=== PATIENT | male | born 2000 | race Two or more races ===

== ENCOUNTER 2024-10-16 19:55 | Emergency (ER) | payer MEDICAID, SELFPAY ==
[2024-10-16 19:56] VITALS: BMI 31.6
--- NOTE | 2024-10-16 19:58 | EKG_ITS ---
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
[2024-10-16 20:04] VITALS: BP 147/82; PULSE 110; RESP 20; TEMP 37; O2SAT 95
--- NOTE | 2024-10-16 20:26 | XR_ITS ---
Examination: PA lateral chest 2 views Technique: Upright PA lateral chest 2 views Exam date and time: October 16, 2024 8:00 PM Comparison 02/20/2024 Indications: Chest pain today. Findings: Normal heart size. Lungs are clear. The osseous structures are intact Impression: No active disease
--- NOTE | 2024-10-16 20:26 | EDNOTE_ITS ---
ED Chest Pain RME/HPI General Chief Complaint: Chest Pain Stated Complaint: CHEST PAIN X 2DAYS Time Seen by Provider: 10/16/24 20:05 Arrival date/time: 10/16/24 19:55 23 year old male present to emergency room with c/o of chest pain for 2 days. patient report recently family had pass away and going through alot lately. denies any SI , hallucination or homicidal thoughts LOCATION: Chest SEVERITY: Symptoms are described as being severe with limitations on activities of daily living CONTEXT: The patient is unable to identify any inciting events. DURATION/TIMING: The symptoms started approximately 2 days ASSOCIATED SYMPTOMS: The patient is unable to identify any other associated symptoms. MODIFYING FACTORS: The patient is unable to identify any alleviating or aggravating symptoms. PERTINENT ROS: no fevers, no cough, no pleuritic pain, no ripping or tearing sensations, denies any lower extremity edema and no unilateral swelling, no nausea,vomiting, diarrhea, no dizziness/headache no rash no loc/syncope episode REVIEW OF SYSTEMS: See History of Present Illness - with the exception of those mentioned in the history of present illness, all other systems reviewed and reported as negative GENERAL: In general the patient is awake, interactive, in an emergency department gurney. HEAD/EYES/EARS/NOSE/THROAT: normo-cephalic, atraumatic, mucus membranes are moist, anicteric, palpebral conjunctiva is pink, trachea is midline. CARDIOVASCULAR: regular rate and regular rhythm, no murmurs, heart sounds are not distant, strong pulses in all four extremities that are equal and symmetric bilateral upper and lower extremities, normal capillary refill. CHEST/PULMONARY: normal chest rise and fall, good air movement, clear to auscultation bilaterally, normal inspiratory to expiratory ratios without evidence of respiratory distress. NECK: No midline/Paraspinal tenderness, no step off ROM/Strenght intact No Kernig and bruzinski sign. No trauma ABDOMEN: soft, not tender, no masses appreciated BACK: normal range of motion without pain. NEUROLOGICAL: cranio-facial features are symmetric, moves all four extremities equally without obvious limitations or weakness. EXTREMITY: no tenderness to palpation over the long bones or large joints of the bilateral upper and lower extremities, no joint swelling, no joint erythema, no signs of trauma, no unilateral leg swelling and no peripheral edema. SKIN: warm, dry, well-perfused, no jaundice, no rash, no telangiectasias or petechia. PSYCH: calm, cooperative, no evidence of psychosis or agitation Related Data Previous Rx's ?Medication ?Instructions ?Recorded ibuprofen 600 mg tablet 600 mg PO Q6H #30 tabs 02/26 ibuprofen 600 mg tablet 600 mg PO Q6H #30 tabs 02/26 ibuprofen 800 mg tablet 800 mg PO TID PRN pain #30 t abs 11/20/23 Allergies Allergy/AdvReac Type Severity Reaction Status Date / Time No Known Allergies Allergy Verified 11/20/23 14:10 Course Quality Measures none Orders Category Date Time Status EKG (ED ONLY) *Do not use* NOW Care 10/16/24 19:58 Completed EKG (ED Only) Stat Exams 10/16/24 19:58 Draft XR chest 2V Stat Exams 10/16/24 20:26 Completed CBC Stat Lab 10/16/24 20:25 Ordered CMP [Comprehensive Metabolic Panel] Stat Lab 10/16/24 20:25 Ordered Lipase Stat Lab 10/16/24 20:25 Ordered Mag [Magnesium] Stat Lab 10/16/24 20:25 Ordered TSH [Thyroid Stimulating Hormone] Stat Lab 10/16/24 20:25 Ordered Troponin I Stat Lab 10/16/24 20:25 Ordered LORazepam [Ativan] Med 10/16/24 20:25 Discontinued 1 mg PO X1 ONE Vital Signs Vital signs: Vital Signs Temperature 98.6 F 10/16/24 20:04 Pulse Rate 110 H 10/16/24 20:04 Respiratory Rate 20 10/16/24 20:04 Blood Pressure 147/82 H 10/16/24 20:04 Pulse Oximetry (%) 95 10/16/24 20:04 Oxygen Delivery Method Room Air 10/16/24 20:04 Procedures -ED EKG Interpretation #1: Date of EK10/16/24 Rate: 100 Interpretation: Reviewed by me EKG Impression: No acute ST-T changes, No ectopy, No ischemic changes and Sinus tachycardia Chest Pain Patient data External records reviewed:: [facility] previous records Clinical information provided by:: patient Social determinants that could affect healthcare access:: none Patient has the following chronic illnesses:: n/a How is presenting disease/condition affected by chronic disease/condition?: no chronic disease Evaluation data The following diagnostics were reviewed and interpreted by me:: lab results, radiology exam(s) and EKG tracing(s) Lab and/or radiology exams considered but not ordered:: n/a Interpretation Summary: n/a Medications / Prescriptions Medications or Prescriptions considered but not ordered:: n/a Medication administrations:: Medication Administration History Discontinued Medications Lorazepam (Lorazepam 0.5 Mg Tablet) 1 mg PO X1 ONE Stop: 10/16/24 20:26 Last Admin: 10/16/24 21:21 Dose: 1 mg Documented By: KF as stated Consultations Consultation(s) initiated? (list below): No Diagnosis Most likely diagnosis given after review of the tests above:: chest pain Admission Indicated Admission indicated?: not indicated Admission Request Was there a request for admission?: No Disposition Plan Disposition Plan: other (specify) (eloped ) Discharge Plan Plan Patient Disposition: Elopement Prescriptions/Referrals Prescriptions/Med Rec: No Action ibuprofen 600 mg tablet 600 mg PO Q6H Qty: 30 0RF ibuprofen 600 mg tablet 600 mg PO Q6H Qty: 30 0RF ibuprofen 800 mg tablet 800 mg PO TID PRN (Reason: pain) Qty: 30 0RF Referrals: No Primary/Family,Physician [Primary Care Provider] - In 1 week Problem List Clinical Impression: Chest pain Patient/Caregiver Discharge Instructions Education Materials: ED Chest Pain, Uncertain Cause Print Language: Icelandic
[2024-10-16] MEDS: LORazepam 0.5 MG TABLET 1 MG PO (21:21)
--- NOTE | 2024-10-16 21:23 | PC.NURSE ---
patient eloped at 2124. provider aware and spoke to patient prior to departure. risks and benefits explained. Encouraged to return as needed.
[2024-10-16 21:42] LABS: Basophils # (Auto) 0.1 Thou/mm3 (0.0-0.2); Basophils % (Auto) 1 % (0-2.5); Eosinophils # (Auto) 0.1 Thou/mm3 (0.0-0.5); Eosinophils % (Auto) 1 % (0-10); Hematocrit 50.4 % (41.0-53.0); Hemoglobin 18.1 g/dL (13.5-16.0); Immature Granulocytes % (Auto) 0 % (0-0); Immature Granulocytes Auto 0.04 Thou/mm3 (0.00-0.00); Lymphocytes # (Auto) 2.4 Thou/mm3 (1.0-4.8); Lymphocytes % (Auto) 24 % (10-50); Mean Corpuscular HGB Conc 35.9 g/dl (31.0-37.0); Mean Corpuscular Volume 84 fL (80-100); Monocytes # (Auto) 0.5 Thou/mm3 (0.0-0.8); Monocytes % (Auto) 5 % (0-12); Neutrophils % (Auto) 69 % (37-80); Nucleated Red Blood Cell % 0 /100 WBC (0); Platelet Count 296 Thou/mm3 (140-440); RDW Standard Deviation 38.2 fL (35.1-43.9); Red Blood Count 6.03 Miln/mm3 (4.50-5.90); White Blood Count 10.1 Thou/mm3 (3.8-10.6)
[2024-10-16 22:05] LABS: Anion Gap 12 (7-16); Blood Urea Nitrogen 16 mg/dL (9-23); Carbon Dioxide 23.6 mMol/L (20.0-31.0); Chloride 109 mMol/L (98-107); Creatinine (Component) 0.9 mg/dL (0.6-1.3); Potassium 3.9 mMol/L (3.4-5.1); Sodium 145 mMol/L (136-145)
[2024-10-16 22:06] LABS: Alanine Aminotransferase 80 U/L (10-49); Albumin, Serum 4.8 gm/dL (3.5-5.0); Albumin/Globulin Ratio 1.8 (1.2-2.2); Alkaline Phosphatase 104 U/L (46-116); Aspartate Amino Transferase 33 U/L (0-34); BUN/Creatinine Ratio 18 Ratio (12-20); Bilirubin,Total 0.3 mg/dL (0.3-1.2); Calcium 9.8 mg/dL (8.3-10.6); Calcium (Corrected) 9.8 mg/dL (8.5-10.1); Estimated Creatinine Clearance 133.3 mL/min (>60); Globulin 2.6 gm/dL (2.3-3.5); Glucose 79 mg/dL (74-106); Lipase 31 U/L (12-53); Magnesium 2.1 mg/dL (1.6-2.6); Osmolality,Calculated 288 (275-295); Thyroid Stimulating Hormone 1.95 uIU/mL (0.55-4.78); Total Protein 7.4 gm/dL (5.7-8.2); Troponin I < 0.002 ng/mL (0.0-0.045); eGFR > 60 See Note
== END 2024-10-16 21:24 | disposition left against medical advice (07) ==
PROVIDERS: Physician Assistant; Emergency Provider Emergency Medicine
DX: R07.9 Chest pain, unspecified (principal)
CPT/HCPCS: 36415; 71046; 80053; 83690; 83735; 84443; 84484; 85025; 93005; 99281; A9270

== ENCOUNTER 2024-11-09 17:28 | Emergency (ER) | payer MEDICAID, SELFPAY ==
[2024-11-09 18:08] VITALS: BP 144/95; PULSE 94; RESP 18; TEMP 36.6; O2SAT 100
--- NOTE | 2024-11-09 18:18 | EKG_ITS ---
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
--- NOTE | 2024-11-09 18:21 | XR_ITS ---
Examination: PA lateral chest 2 views TECHNIQUE: Upright PA and lateral chest 2 views Exam date and time: November 09, 2024 1834 hours Comparison October 16, 2024 INDICATIONS: Confusion panic attack today. FINDINGS: Normal heart size. Lungs are clear. Osseous structures are intact. IMPRESSION: No active disease
[2024-11-09 18:54] LABS: Basophils # (Auto) 0.1 Thou/mm3 (0.0-0.2); Basophils % (Auto) 1 % (0-2.5); Eosinophils % (Auto) 0 % (0-10); Hematocrit 48.6 % (41.0-53.0); Hemoglobin 18.2 g/dL (13.5-16.0); Immature Granulocytes % (Auto) 0 % (0-0); Immature Granulocytes Auto 0.04 Thou/mm3 (0.00-0.00); Lymphocytes # (Auto) 2.2 Thou/mm3 (1.0-4.8); Lymphocytes % (Auto) 24 % (10-50); Mean Corpuscular HGB Conc 37.4 g/dl (31.0-37.0); Mean Corpuscular Hemoglobin 30.2 pg (25.0-35.0); Mean Corpuscular Volume 81 fL (80-100); Monocytes # (Auto) 0.6 Thou/mm3 (0.0-0.8); Monocytes % (Auto) 6 % (0-12); Neutrophils # (Auto) 6.4 Thou/mm3 (1.8-7.7); Neutrophils % (Auto) 69 % (37-80); Nucleated Red Blood Cell % 0 /100 WBC (0); Platelet Count 290 Thou/mm3 (140-440); RDW Standard Deviation 36.1 fL (35.1-43.9); Red Blood Count 6.03 Miln/mm3 (4.50-5.90); White Blood Count 9.3 Thou/mm3 (3.8-10.6)
[2024-11-09 19:06] LABS: B-Type Natriuretic Peptide < 20 pg/mL (0-100)
[2024-11-09 19:14] LABS: D-Dimer < 250 ng/mL (<600)
[2024-11-09 19:21] LABS: Alanine Aminotransferase 66 U/L (10-49); Albumin, Serum 4.9 gm/dL (3.5-5.0); Albumin/Globulin Ratio 1.8 (1.2-2.2); Alcohol, Blood Medical < 10.0 mg/dL (0-10.0); Alkaline Phosphatase 104 U/L (46-116); Anion Gap 11 (7-16); Aspartate Amino Transferase 27 U/L (0-34); BUN/Creatinine Ratio 10 Ratio (12-20); Bilirubin,Total 1.1 mg/dL (0.3-1.2); Blood Urea Nitrogen 8 mg/dL (9-23); Calcium 9.3 mg/dL (8.3-10.6); Calcium (Corrected) 9.3 mg/dL (8.5-10.1); Carbon Dioxide 21.6 mMol/L (20.0-31.0); Chloride 107 mMol/L (98-107); Creatinine (Component) 0.8 mg/dL (0.6-1.3); Globulin 2.7 gm/dL (2.3-3.5); Glucose 95 mg/dL (74-106); Osmolality,Calculated 277 (275-295); Potassium 3.3 mMol/L (3.4-5.1); Sodium 140 mMol/L (136-145); Total Protein 7.6 gm/dL (5.7-8.2); eGFR > 60 See Note
[2024-11-09 19:25] LABS: Amphetamine/Methamp Scrn,U Negative (Negative); Barbiturate Screen,Urine Negative (Negative); Benzodiazepines Screen,Urine Negative (Negative); Benzoylecgonine Screen, Ur Positive (Negative); Fentanyl Screen,Urine Negative (Negative); Opiate Screen,Urine Negative (Negative); THC Screen,Urine Negative (Negative)
[2024-11-09 19:34] LABS: Troponin I < 0.002 ng/mL (0.0-0.045)
--- NOTE | 2024-11-09 20:46 | PC.NURSE ---
nax 1 at this time.
--- NOTE | 2024-11-09 21:11 | PD.EDRME ---
Rapid Medical Screening Exam RME Arrival date/time: 11/09/24 17:28 23-year-old male presents urgent care with complaint of difficulty breathing and shortness of breath that began 2 days ago. Patient admitted to using cocaine as well as alcohol for the last couple of days. Chief Complaint: Chest Pain Time Seen by Provider: 11/09/24 20:43 Vital signs: Vital Signs Temperature 97.8 F 11/09/24 18:08 Pulse Rate 94 11/09/24 18:08 Respiratory Rate 18 11/09/24 18:08 Blood Pressure 144/95 H 11/09/24 18:08 Pulse Oximetry (%) 100 11/09/24 18:08 Oxygen Delivery Method Room Air 11/09/24 18:08 Pulse ox room air is 100%. Vital signs reviewed by provider: Yes
--- NOTE | 2024-11-09 21:53 | PC.NURSE ---
no answer when called at 215 for revitals
== END 2024-11-09 22:00 | disposition left against medical advice (07) ==
LOC: SERX 18:26
PROVIDERS: Physician Assistant; Emergency Provider Podiatrist Foot & Ankle Surgery; PCP Family Medicine
DX: R07.9 Chest pain, unspecified (principal); R06.02 Shortness of breath; Z53.29 Procedure and treatment not carried out because of patient's decision for other reasons
CPT/HCPCS: 36415; 71046; 80053; 80307; 80320; 83880; 84484; 85025; 85379; 93005; 99281; G0480

== ENCOUNTER 2024-11-11 02:32 | Emergency (ER) | payer MEDICAID, SELFPAY ==
[2024-11-11 02:33] VITALS: BP 144/79; PULSE 80; RESP 18; TEMP 36.6; O2SAT 99; BMI 33.4
--- NOTE | 2024-11-11 02:54 | XR_ITS ---
Examination: CT abdomen and pelvis without contrast. Coronal 3-D reconstructions. Sagittal 2-D reconstructions. Date and time of exam:November 11, 2024 0414 hours INDICATIONS: Abdominal pain beginning 2 days ago CTDI: vol (mGy): 9.98 DLP: (mGycm): 585 Technique: Axial images of the abdomen have been obtained, 3 mm slice thickness Intravenous contrast material has not been administered. Low dose protocols were performed. One or more of the following dose reduction techniques were used; automated exposure control, adjustment of the mA and/or KV according to patient size, use of iterative reconstruction technique. Findings: No focal liver or splenic lesions No gallstones No pancreatic mass Normal adrenal glands Mild bilateral renal parenchymal scar formation 1 mm right renal calculus, axial image 102 No hydronephrosis or ureteral calculi Normal appendix Minute fat-containing umbilical hernia No bowel obstruction or diverticulitis Contracted urinary bladder No prostatic megaly IMPRESSION: 1 mm nonobstructing right renal calculus, no hydronephrosis or ureteral calculi Normal appendix
--- NOTE | 2024-11-11 02:55 | PD.EDRME ---
Rapid Medical Screening Exam RME Arrival date/time: 11/11/24 02:32 This is a case of 23-year-old male who came in the emergency room due to generalized abdominal pain cramping in character denies any nausea vomiting denies any constipation diarrhea or blood in stool Chief Complaint: Abdominal Pain Time Seen by Provider: 11/11/24 02:49 Vital signs: Vital Signs Temperature 97.9 F 11/11/24 02:33 Pulse Rate 80 11/11/24 02:33 Respiratory Rate 18 11/11/24 02:33 Blood Pressure 144/79 H 11/11/24 02:33 Pulse Oximetry (%) 99 11/11/24 02:33 Oxygen Delivery Method Room Air 11/11/24 02:33
[2024-11-11 03:23] LABS: Basophils # (Auto) 0.1 Thou/mm3 (0.0-0.2); Basophils % (Auto) 1 % (0-2.5); Eosinophils # (Auto) 0.1 Thou/mm3 (0.0-0.5); Eosinophils % (Auto) 1 % (0-10); Hematocrit 47.8 % (41.0-53.0); Hemoglobin 17.6 g/dL (13.5-16.0); Immature Granulocytes % (Auto) 0 % (0-0); Immature Granulocytes Auto 0.02 Thou/mm3 (0.00-0.00); Lymphocytes # (Auto) 3.8 Thou/mm3 (1.0-4.8); Lymphocytes % (Auto) 38 % (10-50); Mean Corpuscular HGB Conc 36.8 g/dl (31.0-37.0); Mean Corpuscular Hemoglobin 29.9 pg (25.0-35.0); Mean Corpuscular Volume 81 fL (80-100); Monocytes # (Auto) 0.6 Thou/mm3 (0.0-0.8); Monocytes % (Auto) 6 % (0-12); Neutrophils # (Auto) 5.5 Thou/mm3 (1.8-7.7); Neutrophils % (Auto) 55 % (37-80); Nucleated Red Blood Cell % 0 /100 WBC (0); Platelet Count 272 Thou/mm3 (140-440); RDW Standard Deviation 36.7 fL (35.1-43.9); Red Blood Count 5.88 Miln/mm3 (4.50-5.90)
[2024-11-11 03:52] LABS: Alanine Aminotransferase 59 U/L (10-49); Albumin, Serum 4.8 gm/dL (3.5-5.0); Albumin/Globulin Ratio 1.8 (1.2-2.2); Alkaline Phosphatase 102 U/L (46-116); Anion Gap 11 (7-16); Aspartate Amino Transferase 22 U/L (0-34); BUN/Creatinine Ratio 17 Ratio (12-20); Bilirubin,Total 0.6 mg/dL (0.3-1.2); Blood Urea Nitrogen 15 mg/dL (9-23); Calcium 9.1 mg/dL (8.3-10.6); Calcium (Corrected) 9.1 mg/dL (8.5-10.1); Chloride 108 mMol/L (98-107); Creatinine (Component) 0.9 mg/dL (0.6-1.3); Estimated Creatinine Clearance 136.9 mL/min (>60); Globulin 2.7 gm/dL (2.3-3.5); Glucose 101 mg/dL (74-106); Lipase 36 U/L (12-53); Osmolality,Calculated 283 (275-295); Potassium 3.5 mMol/L (3.4-5.1); Sodium 142 mMol/L (136-145); Total Protein 7.5 gm/dL (5.7-8.2); eGFR > 60 See Note
[2024-11-11 04:53] LABS: Bacteria,Urine Rare; Bilirubin,Urine Negative (Negative); Blood,Urine Trace (Negative); Clarity,Urine Clear (Clear/Hazy); Collection Type, Urine Clean Catch; Color,Urine Yellow (Lt Yel-Yel); Glucose, Urine Negative (Negative); Ketones,Urine Negative (Negative); Leukocyte Esterase,Urine Negative (Negative); Nitrite,Urine Negative (Negative); Protein,Urine Trace (Neg - Trace); RBC,Urine 2 /hpf (0-3); Specific Gravity,Urine 1.036 (1.001-1.035); Squamous Epithelial Cell,Urine < 1 /hpf (0-5); Urobilinogen,Urine Negative mg/dL (0.0-1.0); WBC,Urine 0 /hpf (0-5)
--- NOTE | 2024-11-11 05:19 | PRELIM_ITS ---
CT scan of the abdomen and pelvis without intravenous contrast (axial sections with sagittal and coronal reformats). November 11, 2024 at 0414 hours Clinical History: Abdominal pain. Comparison: None Findings: The unenhanced liver, gallbladder, spleen, pancreas, adrenals and kidneys are unremarkable. Urinary bladder only contains a small amount of fluid and is not adequately distended. There is underdistention of the stomach, which limits evaluation. There are colonic diverticula without evidence of diverticulitis. There is no bowel obstruction. The appendix is normal. There is no free intraperitoneal air or fluid. There is no abdominal or pelvic lymphadenopathy. The visualized lung bases are clear. There is no acute osseous abnormality. Impression: Colonic diverticula without evidence of diverticulitis. Normal appendix. No bowel obstruction. No free intraperitoneal air or fluid. Report Electronically Signed By: Josue Miller 11/11/2024 5:18:31 AM [EST]
--- NOTE | 2024-11-11 05:41 | EDNOTE_ITS ---
ED Abdominal Pain RME/HPI General Chief Complaint: Abdominal Pain Stated complaint: ABD PAIN Time seen by provider: 11/11/24 02:49 Arrival date/time: 11/11/24 02:32 This is a case of 23-year-old male who came in in the emergency room due to abdominal pain generalized cramping in character associated with nausea vomiting denies any constipation diarrhea or blood in stool denies any urinary symptoms denies any penile discharge Limitations: no limitations RME / HPI RME / HPI narrative: 11/11/24 02:32 This is a case of 23-year-old male who came in the emergency room due to generalized abdominal pain cramping in character denies any nausea vomiting denies any constipation diarrhea or blood in stool Related Data Previous Rx's ?Medication ?Instructions ?Recorded ibuprofen 600 mg tablet 600 mg PO Q6H #30 tabs 02/26 ibuprofen 600 mg tablet 600 mg PO Q6H #30 tabs 02/26 ibuprofen 800 mg tablet 800 mg PO TID PRN pain #30 t abs 11/20/23 amoxicillin 875 mg-potassium 1 tab PO Q12H 10 days #20 tabs 11/11/24 clavulanate 125 mg tablet dicyclomine 10 mg capsule 20 mg (2 x 10 mg) PO TID PRN 11/11/24 abdominal pain #30 caps ondansetron 4 mg disintegrating 4 mg PO Q8H PRN nausea and 11/11/24 tablet vomiting #20 tabs Allergies Allergy/AdvReac Type Severity Reaction Status Date / Time No Known Allergies Allergy Verified 11/09/24 17:31 Review of Systems Review of Systems Systems Reviewed: All systems reviewed, normal except as documented Constitutional Constitutional: Reports system reviewed and no additional complaints, except as documented ENT Ears, Nose, Mouth, and Throat: Denies dysphagia and Denies odynophagia Cardiovascular Cardiovascular: Reports system reviewed and no additional complaints, except as documented Respiratory Respiratory: Reports system reviewed and no additional complaints, except as documented Gastrointestinal Gastrointestinal: Reports system reviewed and no additional complaints, except as documented, Reports as per HPI, Reports abdominal pain, Denies belching, Denies bloating, Denies change in bowel habits, Denies change in stool character, Denies coffee ground emesis, Denies constipation, Denies cramping, Denies diarrhea, Denies dyspepsia, Denies dysphagia, Denies early satiety, Denies excessive flatus, Denies fecal incontinence, Denies heartburn, Denies hematemesis, Denies hematochezia, Denies loose stools, Denies melena, Reports nausea, Denies odynophagia, Denies tenesmus and Reports vomiting Musculoskeletal Musculoskeletal: Reports system reviewed and no additional complaints, except as documented Neurologic Neurologic: Reports system reviewed and no additional complaints, except as documented Past Medical History Past Medical History CARDIAC: Negative Congestive Heart Failure RESPIRATORY: Negative Chronic Obstructive Pulmonary Disease (COPD) GENITOURINARY: Negative Renal Disease ENDOCRINE: Negative Diabetes Mellitus Type 1 or Diabetes Mellitus Type 2 Social History SMOKING STATUS: Never smoker ED Exam General Limitations: Present no limitations General appearance: Present alert and in no apparent distress Head Head exam: Present atraumatic Eye Eye exam: Present normal appearance, PERRL and EOMI ENT ENT exam: Present normal exam, normal oropharynx and mucous membranes moist Neck Neck exam: Present normal inspection, full ROM and trachea midline Chest Chest inspection: Present normal inspection and symmetric chest wall rise Respiratory Respiratory exam: Present normal lung sounds bilaterally Cardiovascular Cardiovascular exam: Present regular rate, normal rhythm and normal heart sounds Abdominal Exam Abdominal exam: Present soft, tenderness (Mild to moderate tenderness periumbilical area), normal bowel sounds and other (No CVA tenderness); Absent distention, guarding, rebound, rigidity, diminished bowel sounds, hyperactive bowel sounds, hypoactive bowel sounds, organomegaly, trauma, incision, psoas sign, obturator sign, Carranza's sign, Rovsing's sign, tenderness at McBurney's Point, ascites or mass Extremities Exam Extremities exam: Present normal inspection and full ROM Back Exam Back exam: Present normal inspection and full ROM Neurological Exam Neurological exam: Present alert, oriented X3 and CN II-XII intact Psychiatric Psychiatric exam: Present normal affect and normal mood Skin Skin exam: Present warm, dry, intact and normal color Course Quality Measures none Orders Category Date Time Status CT abdomen pelvis wo con Stat Exams 11/11/24 02:54 Taken CBC Stat Lab 11/11/24 03:10 Completed Comprehensive Metabolic Panel Stat Lab 11/11/24 03:10 Completed Lipase Stat Lab 11/11/24 03:10 Completed Urinalysis Stat Lab 11/11/24 02:54 Completed Dicyclomine Inj [Bentyl Inj] Med 11/11/24 05:34 Discontinued 10 mg IM X1 ONE HYDROcodone*/APAP 5/325 [[place] 5/325] Med 11/11/24 05:34 Discontinued 1 tab PO X1 ONE Ondansetron Odt [Zofran Odt] Med 11/11/24 05:34 Discontinued 4 mg PO X1 ONE Vital Signs Vital signs: Vital Signs Temperature 97.9 F 11/11/24 02:33 Pulse Rate 80 11/11/24 02:33 Respiratory Rate 18 11/11/24 02:33 Blood Pressure 144/79 H 11/11/24 02:33 Pulse Oximetry (%) 99 11/11/24 02:33 Oxygen Delivery Method Room Air 11/11/24 02:33 Oxygen saturation 99% on room air wnl Abdominal Pain MDM MDM Narrative MDM Narrative:: This is a case of 23-year-old male who came in in the emergency room due to abdominal pain generalized cramping in character associated with nausea vomiting denies any constipation diarrhea or blood in stool denies any urinary symptoms denies any penile discharge physical examination patient is awake alert oriented not in distress nontoxic looking patient vital signs stable BP stable not tachycardic not tachypneic afebrile and not hypoxic oxygen saturation is normal patient skin is normal normal skin turgor no signs and symptoms of dehydration patient abdominal exam is benign nonsurgical no guarding no rebound no rigidity negative psoas negative straight and negative Rovsing's negative McBurney's negative Carranza sign patient has no CVA tenderness the rest of the physical exam is normal blood test showed no leukocytosis no anemia kidney and liver function is normal no electrolyte imbalance lipase is normal urinalysis is normal CT scan showed diverticulosis but not diverticulitis at this point patient will be discharged as diverticulosis patient was given Bentyl IM here in the emergency room with Zofran and [place] after 30 minutes patient condition markedly improved patient abdominal pain is resolved according to the patient abdominal exam is still benign no guarding no rebound no rigidity at this point patient will be discharged with stable condition with steady gait patient was advised to follow- up with PCP in 2 days for reevaluation and for any recurrence worsening symptoms or any emergent concern he will return in the emergency room immediately or call 9 none oral hydration is advised at home Pedialyte Gatorade for every bouts of vomiting and or diarrhea patient was given Augmentin for diverticulosis patient was advised to follow-up with PCP to be referred to community health counselor for further evaluation and treatment of diverticulosis patient agreed with the treatment plan and discharge patient understood the discharge instruction Patient data External records reviewed:: [facility] previous records Clinical information provided by:: none Social determinants that could affect healthcare access:: none Patient has the following chronic illnesses:: None How is presenting disease/condition affected by chronic disease/condition?: no chronic disease Evaluation data The following diagnostics were reviewed and interpreted by me:: lab results and radiology exam(s) Lab and/or radiology exams considered but not ordered:: Reviewed Interpretation Summary: Reviewed Medications / Prescriptions Medications or Prescriptions considered but not ordered:: Given Medication administrations:: Medication Administration History Discontinued Medications Hydrocodone Bitart/Acetaminophen (Hydrocodone/Apap 5/325 Tablet) 1 tab PO X1 ONE Stop: 11/11/24 05:35 Dicyclomine HCl (Dicyclomine Inj 10 Mg/Ml 2ml Amp) 10 mg IM X1 ONE Stop: 11/11/24 05:35 Ondansetron HCl (Ondansetron Odt 4 Mg Tabrap) 4 mg PO X1 ONE; Protocol Stop: 11/11/24 05:35 Given Consultations Consultation(s) initiated? (list below): No Diagnosis Differential diagnosis abdominal pain: abdominal pain, acute appendicitis, calculus of kidney, constipation, diverticulitis, gastroenteritis and pancreatitis Most likely diagnosis given after review of the tests above:: Diverticulosis Admission Indicated Admission indicated?: not indicated Admission Request Was there a request for admission?: No Admission Attestation Admission request attestation: Not indicated Disposition Plan Disposition Plan: Discharge Discharge Attestation Discharge Attestation: The patient and all family members were given an opportunity to ask questions and understood the discharge instructions. Discharge instructions specifically effects, indications for sooner follow up or return to the emergency department, and the expected course of current diagnosis. Patient condition: Stable Discharge Plan Plan Patient Disposition: HOME (Self Care) Discharge Disposition comment: Stable Prescriptions/Referrals Prescriptions/Med Rec: New dicyclomine 10 mg capsule 20 mg PO TID PRN (Reason: abdominal pain) Qty: 30 0RF ondansetron 4 mg tablet,disintegrating 4 mg PO Q8H PRN (Reason: nausea and vomiting) Qty: 20 0RF amoxicillin-pot clavulanate 875-125 mg tablet 1 tab PO Q12H 10 Days Qty: 20 0RF No Action ibuprofen 600 mg tablet 600 mg PO Q6H Qty: 30 0RF ibuprofen 600 mg tablet 600 mg PO Q6H Qty: 30 0RF ibuprofen 800 mg tablet 800 mg PO TID PRN (Reason: pain) Qty: 30 0RF Problem List Clinical Impression: Abdominal pain, Diverticulosis Patient/Caregiver Discharge Instructions Other Activity Instructions:: Follow-up with your primary care physician in 2 days for reevaluation and to be referred to community health counselor for further evaluation and treatment of diverticulosis recurrence worsening symptoms or any emergent concern call 911 or go to the nearest emergency room modified diet low- fat low-salt low-cholesterol diet increase water intake Pedialyte Gatorade for every bouts of vomiting and or diarrhea Education Materials: Abdominal Pain, Diverticulosis Diverticulitis, ED Diverticulosis Print Language: Gabonese Stand Alone Forms: Gerri Award Info., Patient Portal Info Letter PA/SOLAR DESIGNER/INSTALLER Supervising Physician PA/SOLAR DESIGNER/INSTALLER Supervising Physician: dr welch
[2024-11-11] MEDS: ONDANSETRON ODT 4 MG TABRAP PO (06:04)
[2024-11-11] MEDS: DICYCLOMINE INJ 10 MG/ML 2ML AMP IM (06:04)
[2024-11-11] MEDS: HYDROcodone/APAP 5/325 TABLET 1 TAB PO (06:04)
== END 2024-11-11 06:09 | disposition home or self-care (01) ==
LOC: SERX 05:57
PROVIDERS: Nurse Practitioner Family; Emergency Provider Emergency Medicine; PCP Family Medicine
DX: K57.30 Diverticulosis of large intestine without perforation or abscess without bleeding (principal)
CPT/HCPCS: 36415; 74176; 80053; 81001; 83690; 85025; 96372; 99284; J0500; Q0162; A9270

== ENCOUNTER 2025-02-02 17:35 | Emergency (ER) | payer MEDICAID, SELFPAY ==
[2025-02-02 17:36] VITALS: PULSE 92; RESP 18; O2SAT 99; BMI 30.4
--- NOTE | 2025-02-02 17:49 | EKG_ITS ---
[facility] Test Date: 2025-02-02 Pat Name: ANALY SANTOYO Department: Room: - Gender: Male [employer]: : 2000 Requested By: Dixon Rogers Order Number: [id number] Reading MD: Dixon Rogers Measurements Intervals [place] Rate: 77 P: 49 AK: 162 QRS: 17 QRSD: 89 T: 17 QT: 354 QTc: 401 Interpretive Statements SINUS RHYTHM Compared to ECG 11/09/2024 18:28:06 No significant changes /store/S0/[id number]
--- NOTE | 2025-02-02 17:49 | XR_ITS ---
Examination: AP chest single view TECHNIQUE: AP portable upright chest single view Date and time: February 02, 2025, 1804 hours INDICATIONS: Choking shortness of breath today. FINDINGS: Normal heart size. No aspiration pneumonia. The osseous structures are intact. IMPRESSION: No active disease.
[2025-02-02 17:52] VITALS: BP 148/88; PULSE 91; RESP 16; TEMP 36.9; O2SAT 98
--- NOTE | 2025-02-02 17:52 | XR_ITS ---
Examination: CT brain head without contrast. 2-D sagittal coronal reconstructions Date and time of exam:February 02, 2025, 1828 hours INDICATIONS: Seizure today with injury to the head, head pain CTDI: vol (mGy):53.6 DLP: (mGycm):1154 Technique: Multiple CT axial sections of the brain have been obtained, 5 mm slice thickness. Contrast has not been administered. 2-D sagittal, coronal reconstructions have been obtained Low dose protocols were performed. One or more of the following dose reduction techniques were used; automated exposure control, adjustment of the mA and/or KV according to patient size, use of iterative reconstruction technique. Findings: No significant ventricular enlargement. Intra-axial or extra-axial hemorrhage density is not seen. No mass effect or midline shift Basal cisterns are not remarkable. Fourth ventricle is midline. Cranial vault intact. Impression: Negative for acute hemorrhage, mass effect or midline shift Consider elective brain MRI follow-up, pre and postcontrast, seizure protocol
[2025-02-02] MEDS: levETIRAcetam INJ 100 MG/ML VIAL 5ML 1000 MG IVP (17:53)
--- NOTE | 2025-02-02 17:53 | EDNOTE_ITS ---
ED Seizures RME/HPI General Chief Complaint: Seizure Stated Complaint: SEIZURE Time Seen by Provider: 02/02/25 17:48 Arrival date/time: 02/02/25 17:35 RME / HPI RME / HPI Narrative: 24-year-old male patient with significant history of seizure disorder however patient is not taking medications for more than 3 years, came in for evaluation regarding witnessed tonic-clonic seizure lasting for few seconds. When EMS arrived patient was noted to have mild confusion postictal. Patient was also witnessed by me having tonic-clonic seizure lasting for few seconds however patient woke up right away I did not notice any postictal confusion. Patient complain of low back pain. Described as dull ache, severity moderate. Also complaining of thoracic pain, described as dull ache, severity moderate.'s been ongoing for the last few days. Denies any other complaints. Related Data Previous Rx's ?Medication ?Instructions ?Recorded ibuprofen 600 mg tablet 600 mg PO Q6H #30 tabs 02/26 ibuprofen 600 mg tablet 600 mg PO Q6H #30 tabs 02/26 ibuprofen 800 mg tablet 800 mg PO TID PRN pain #30 t abs 11/20/23 dicyclomine 10 mg capsule 20 mg (2 x 10 mg) PO TID PRN 11/11/24 abdominal pain #30 caps ondansetron 4 mg disintegrating 4 mg PO Q8H PRN nausea and 11/11/24 tablet vomiting #20 tabs cyclobenzaprine 10 mg tablet 10 mg PO TID PRN muscle s pasm #30 02/02/25 tabs ibuprofen 800 mg tablet 800 mg PO Q8H PRN pain #30 t abs 02/02/25 Allergies Allergy/AdvReac Type Severity Reaction Status Date / Time No Known Allergies Allergy Verified 11/09/24 17:31 Review of Systems Review of Systems Narrative Review of Systems: Review of system reviewed and within normal limits except mentioned in HPI ED Exam Narrative Physical exam: VITAL SIGNS: Reviewed. GENERAL APPEARANCE: Alert and interactive, follows commands, no acute distress, HEAD AND FACE: Non-traumatic. ENT: PERRL, pink conjunctivitis, eyelid no trauma, Mucous membrane moist. NECK: Supple, nontender, no nuchal rigidity. CHEST: No tenderness, no crepitus, no paradoxical movement, no retractions. LUNGS: Clear, well ventilated, symmetric, no rales, no wheezing, no ronchi, no stridor, good breath sounds bilaterally. HEART: Regular rate, regular rhythm, no murmur, no gallops. ABDOMEN: Soft, positive bowel sounds, nondistended, no guarding, nontender, no rebound, no masses, RECTAL: Deferred. GENITAL: Deferred. NEUROLOGICAL: Gross motor function intact sensory function intact, Appropriate for age. MUSCULOSKELETAL: low back nontender, full range of motion. EXTREMITIES: Nontender, full range of motion. SKIN: Color pink, dry, no rash, no lacerations, no abrasions, no contusions. LYMPHATICS: Deferred. Course Quality Measures none Orders Category Date Time Status EKG (ED ONLY) *Do not use* NOW Care 02/02/25 17:[address] head/brain wo con Stat Exams 02/02/25 17:[address] lumbar spine wo con Stat Exams 02/02/25 18:[address] thoracic spine wo con Stat Exams 02/02/25 18:04 Completed EKG (ED Only) Stat Exams 02/02/25 17:49 Draft XR chest 1V Stat Exams 02/02/25 17:49 Completed CBC Stat Lab 02/02/25 18:05 Completed Comprehensive Metabolic Panel Stat Lab 02/02/25 18:05 Completed Drug Screen,Urine Stat Lab 02/02/25 20:33 Received Lactate (Lactic Acid) Stat Lab 02/02/25 18:05 Completed Partial Thromboplastin Time Stat Lab 02/02/25 18:05 Completed Urinalysis, C/S if Indicated Stat Lab 02/02/25 20:33 Completed Acetaminophen Ivpb [Ofirmev Inj] Med 02/02/25 18:05 Discontinued 1,000 mg in 100 ml IV X1 Ketorolac Inj [Toradol Inj] Med 02/02/25 20:30 Discontinued 30 mg IVP X1 ONE Ringers Lactated 1000 ml [Lactated Ringers] 1,000 ml Med 02/02/25 17:49 Discontinued IV 999 mls/hr levETIRAcetam INJ [Keppra Inj] Med 02/02/25 17:49 Discontinued 1,000 mg IVP X1 ONE Vital Signs Vital signs: Vital Signs Temperature 98.5 F 02/02/25 17:52 Pulse Rate 91 02/02/25 17:52 Respiratory Rate 16 02/02/25 17:52 Blood Pressure 148/88 H 02/02/25 17:52 Pulse Oximetry (%) 98 02/02/25 17:52 Oxygen Delivery Method Room Air 02/02/25 17:[address] [facility] Narrative [facility] Narrative:: 24-year-old male patient with significant history of seizure disorder however patient is not taking medications for more than 3 years, came in for evaluation regarding witnessed tonic-clonic seizure lasting for few seconds. When EMS arrived patient was noted to have mild confusion postictal. Patient was also witnessed by me having tonic-clonic seizure lasting for few seconds however patient woke up right away I did not notice any postictal confusion. Patient complain of low back pain. Described as dull ache, severity moderate. Also complaining of thoracic pain, described as dull ache, severity moderate.'s been ongoing for the last few days. Denies any other complaints. CT scan of the head came back unremarkable. CT scan of the thoracic spine came back unremarkable CT scan of the lumbar spine came back unremarkable. Patient's laboratory workup also came back normal including normal lactic acid. Patient received Keppra IV, IV fluids,. No recurrence of seizure noted in the ED. Patient is back to baseline awake and oriented x 4. Patient was advised not to operate machinery, no driving, no swimming no climbing until cleared by neurologist. Patient data External records reviewed:: None Clinical information provided by:: none Social determinants that could affect healthcare access:: none Patient has the following chronic illnesses:: None How is presenting disease/condition affected by chronic disease/condition?: no chronic disease Evaluation data The following diagnostics were reviewed and interpreted by me:: lab results, radiology exam(s) and EKG tracing(s) Lab and/or radiology exams considered but not ordered:: None Interpretation Summary: See results [facility] Medications / Prescriptions Medications or Prescriptions considered but not ordered:: None Medication administrations:: Medication Administration History Discontinued Medications Lactated Ringer's (Lactated Ringers) 1,000 mls @ 999 mls/hr IV .Q1H1M ONE Stop: 02/02/25 18:49 Last Infusion: 02/02/25 19:09 Dose: Infused Documented By: Admin: 02/02/25 17:56 Dose: 999 mls/hr Documented By: DB Acetaminophen (Ofirmev Inj) 1,000 mg in 100 mls @ 250 mls/hr IV X1 ONE Stop: 02/02/25 18:28 Last Infusion: 02/02/25 19:20 Dose: Infused Documented By: Admin: 02/02/25 18:55 Dose: 250 mls/hr Documented By: JOHNATHAN Ketorolac Tromethamine (Ketorolac Inj 30 Mg/Ml Vial) 30 mg IVP X1 ONE Stop: 02/02/25 20:31 Last Admin: 02/02/25 20:47 Dose: 30 mg Documented By: AIME Levetiracetam (Levetiracetam Inj 100 Mg/Ml Vial 5ml) 1,000 mg IVP X1 ONE Stop: 02/02/25 17:50 Last Admin: 02/02/25 17:53 Dose: 1,000 mg Documented By: CHARLENE Briones Torlianet Tylenol IV fluids Consultations Consultation(s) initiated? (list below): No Diagnosis Seizure Differential Diagnosis: intractable seizure disorder, focal seizure and generalized seizure Most likely diagnosis given after review of the tests above:: New onset seizure Admission Indicated Admission indicated?: not indicated Admission Request Was there a request for admission?: No Disposition Plan Disposition Plan: Discharge Discharge Attestation Discharge Attestation: The patient and all family members were given an opportunity to ask questions and understood the discharge instructions. Discharge instructions specifically effects, indications for sooner follow up or return to the emergency department, and the expected course of current diagnosis. Patient condition: Stable Discharge Plan Plan Patient Disposition: HOME (Self Care) Discharge Disposition comment: stable Prescriptions/Referrals Prescriptions/Med Rec: New ibuprofen 800 mg tablet 800 mg PO Q8H PRN (Reason: pain) Qty: 30 0RF cyclobenzaprine 10 mg tablet 10 mg PO TID PRN (Reason: muscle spasm) Qty: 30 0RF No Action ibuprofen 600 mg tablet 600 mg PO Q6H Qty: 30 0RF ibuprofen 600 mg tablet 600 mg PO Q6H Qty: 30 0RF ibuprofen 800 mg tablet 800 mg PO TID PRN (Reason: pain) Qty: 30 0RF dicyclomine 10 mg capsule 20 mg PO TID PRN (Reason: abdominal pain) Qty: 30 0RF ondansetron 4 mg tablet,disintegrating 4 mg PO Q8H PRN (Reason: nausea and vomiting) Qty: 20 0RF Referrals: No Primary/Family,Physician [Primary Care Provider] - In 1 week Problem List Clinical Impression: New onset seizure, Back pain Patient/Caregiver Discharge Instructions Discharge Activity: activity as tolerated Education Materials: Back Safety Bed Additional Instructions: Thank you for the opportunity for serving you today. You are stable for discharged . You are advised to: Follow-up with your PCP in 1 to 2 days Return to ED for worsening of symptoms Increase oral fluids Please follow-up with your PCP and asked for referral to neurologist for seizure workup. You are not allowed to drive your vehicle, do swimming operate machinery until cleared by your neurologist or PCP. Print Language: Yoruba Stand Alone Forms: Gerri Award Info., Patient Portal Info Letter PA/RESIDENTIAL [employer] CONSULTANT Supervising Physician PA/MUKUL Supervising Physician: MD Evelina
[2025-02-02] MEDS: RINGERS LACTATED 1000 ML 1,000 ML 999 ML IV (17:56)
--- NOTE | 2025-02-02 17:59 | PC.NURSE ---
PATIENT ARRIVED ED VIA EMS SECONDARY TO POSSIBLE SEIZURES. PER EMS FAMILY WITNESSED SEIZURE LASTING APPROX 5 MINUTES PRIOR TO EMS ARRIVAL. PATIENT WITH SEIZURE ACTIVITY AT TIME OF ARRIVAL TO ED. PATIENT ABLE TO BE ARROUSED WITHIN MINUTES OF SEIZURE. PATIENT WITH CONFUSION TO TIME AND PLACE. GIRLFRIEND AT BESIDE AND STATE THAT PATIENT DID NOT FALL FROM A STANDING POSITION THAT HE FELL ONTO BED. PATIENT DOES COMPLAIN OF HEADACHE 4/10. DURING ASSESSMENT PATIENT'S GCS IMPROVED. WILL CONTINUE TO MONITOR.
--- NOTE | 2025-02-02 18:04 | XR_ITS ---
Examination: CT lumbar spine, without contrast. 2-D sagittal reconstructions. 2-D coronal reconstructions. 3-D reconstructions. Time: February 02, 2025, 1830 hours INDICATIONS: Seizure today with injury to lower back pain. CTDI: vol (mGy):22.6 DLP: (mGycm):757. Technique: Multiple 1.25 mm axial sections of the lumbar spine without intravenous contrast have been obtained. 2-D sagittal and coronal reconstructions have been obtained. 3-D reconstructions have been obtained. Low dose protocols were performed. One or more of the following dose reduction techniques were used; automated exposure control, adjustment of the mA and/or KV according to patient size, use of iterative reconstruction technique. Findings: Adequate alignment lumbar vertebral bodies on the lateral view. No lumbar vertebral body compression fracture. Lumbar pedicles, laminae, transverse and posterior spinous processes are intact Axial images demonstrate no focal lumbar disc protrusion IMPRESSION: No lumbar fracture
--- NOTE | 2025-02-02 18:04 | XR_ITS ---
Examination: CT thoracic spine, without contrast. 2-D sagittal reconstructions. 2-D coronal reconstructions. 3-D reconstructions. Date and time of exam:February 02, 2025 1836 hours INDICATIONS: Seizure today, patient fell with injury to the back, mid back pain CTDI: vol (mGy):33.9 DLP: (mGycm):1223 Technique: Multiple 1.25 mm axial sections of the thoracic spine without intravenous contrast have been obtained. 2-D sagittal and coronal reconstructions have been obtained. 3-D reconstructions have been obtained. Low dose protocols were performed. One or more of the following dose reduction techniques were used; automated exposure control, adjustment of the mA and/or KV according to patient size, use of iterative reconstruction technique. Findings: Adequate alignment thoracic vertebral bodies on lateral view No thoracic fracture Axial sections demonstrate no focal thoracic disc protrusion IMPRESSION: No acute thoracic fracture
[2025-02-02 18:18] LABS: Lactate (Lactic Acid) 1.9 mMol/L (0.4-2.0)
[2025-02-02 18:19] LABS: Basophils # (Auto) 0.1 Thou/mm3 (0.0-0.2); Basophils % (Auto) 1 % (0-2.5); Eosinophils # (Auto) 0.1 Thou/mm3 (0.0-0.5); Eosinophils % (Auto) 1 % (0-10); Hematocrit 49.4 % (41.0-53.0); Hemoglobin 17.1 g/dL (13.5-16.0); Immature Granulocytes Auto 0.04 Thou/mm3 (0.00-0.00); Lymphocytes # (Auto) 2.0 Thou/mm3 (1.0-4.8); Lymphocytes % (Auto) 22 % (10-50); Mean Corpuscular HGB Conc 34.6 g/dl (31.0-37.0); Mean Corpuscular Hemoglobin 30.0 pg (25.0-35.0); Mean Corpuscular Volume 87 fL (80-100); Monocytes # (Auto) 0.4 Thou/mm3 (0.0-0.8); Monocytes % (Auto) 5 % (0-12); Neutrophils # (Auto) 6.5 Thou/mm3 (1.8-7.7); Neutrophils % (Auto) 71 % (37-80); Nucleated Red Blood Cell # 0.00 Thou/mm3 (0.00-0.00); Nucleated Red Blood Cell % 0 /100 WBC (0); Platelet Count 213 Thou/mm3 (140-440); RDW Standard Deviation 40.3 fL (35.1-43.9); Red Blood Count 5.70 Miln/mm3 (4.50-5.90); White Blood Count 9.1 Thou/mm3 (3.8-10.6)
[2025-02-02 18:34] LABS: Partial Thromboplastin Time 25.3 Seconds (22.0-36.0)
[2025-02-02 18:49] LABS: Alanine Aminotransferase 66 U/L (10-49); Albumin, Serum 4.3 gm/dL (3.5-5.0); Albumin/Globulin Ratio 1.7 (1.2-2.2); Alkaline Phosphatase 105 U/L (46-116); Anion Gap 10 (7-16); Aspartate Amino Transferase 24 U/L (0-34); BUN/Creatinine Ratio 11 Ratio (12-20); Bilirubin,Total 0.5 mg/dL (0.3-1.2); Blood Urea Nitrogen 9 mg/dL (9-23); Calcium 9.7 mg/dL (8.3-10.6); Calcium (Corrected) 9.7 mg/dL (8.5-10.1); Carbon Dioxide 24.7 mMol/L (20.0-31.0); Chloride 110 mMol/L (98-107); Creatinine (Component) 0.8 mg/dL (0.6-1.3); Estimated Creatinine Clearance 146.2 mL/min (>60); Globulin 2.5 gm/dL (2.3-3.5); Glucose 103 mg/dL (74-106); Osmolality,Calculated 287 (275-295); Potassium 3.7 mMol/L (3.4-5.1); Sodium 145 mMol/L (136-145); Total Protein 6.8 gm/dL (5.7-8.2); eGFR > 60 See Note
[2025-02-02] MEDS: ACETAMINOPHEN IVPB 1,000 MG/100 ML VIAL 250 MG IV (18:55)
[2025-02-02 20:45] LABS: Collection Type, Urine Clean Catch; Squamous Epithelial Cell,Urine 0 /hpf (0-5)
[2025-02-02] MEDS: KETOROLAC INJ 30 MG/ML VIAL IVP (20:47)
[2025-02-02 20:50] VITALS: BP 119/64; PULSE 64; RESP 16; TEMP 36.6; O2SAT 97
[2025-02-02 21:08] LABS: Bilirubin,Urine Negative (Negative); Blood,Urine Negative (Negative); Clarity,Urine Clear (Clear/Hazy); Color,Urine Yellow (Lt Yel-Yel); Culture Indicated,Urine Not Indicated; Glucose, Urine Negative (Negative); Ketones,Urine Negative (Negative); Leukocyte Esterase,Urine Negative (Negative); Nitrite,Urine Negative (Negative); PH,Urine 6.0 (5.0-7.0); Protein,Urine Trace (Neg - Trace); RBC,Urine 2 /hpf (0-3); Specific Gravity,Urine 1.031 (1.001-1.035); Urobilinogen,Urine Negative mg/dL (0.0-1.0); WBC,Urine < 1 /hpf (0-5)
[2025-02-02 22:31] LABS: Amphetamine/Methamp Scrn,U Negative (Negative); Barbiturate Screen,Urine Negative (Negative); Benzodiazepines Screen,Urine Positive (Negative); Benzoylecgonine Screen, Ur Negative (Negative); Fentanyl Screen,Urine Negative (Negative); Opiate Screen,Urine Negative (Negative); THC Screen,Urine Negative (Negative)
[2025-02-02 22:49] VITALS: BP 127/75; PULSE 59; RESP 16; O2SAT 96
== END 2025-02-02 22:57 | disposition home or self-care (01) ==
PROVIDERS: Nurse Practitioner Family; Emergency Provider Family Medicine
DX: R56.9 Unspecified convulsions (principal); S09.90XA Unspecified injury of head, initial encounter; S29.9XXA Unspecified injury of thorax, initial encounter; S39.92XA Unspecified injury of lower back, initial encounter; R06.02 Shortness of breath; X58.XXXA Exposure to other specified factors, initial encounter
CPT/HCPCS: 36415; 70450; 71045; 72128; 72131; 80053; 80307; 81001; 83605; 85025; 85730; 93005; 96361; 96365; 96375; 99284; J0131; J1885; J1953; J7120

== ENCOUNTER 2025-02-09 07:44 | Emergency (ER) | payer OTHER, SELFPAY ==
[2025-02-09 07:59] VITALS: BP 157/102; PULSE 63; RESP 13; TEMP 36.5; O2SAT 95
--- NOTE | 2025-02-09 08:05 | XR_ITS ---
EXAMINATION: Ankle, left 3 views . Technique: Ankle AP, oblique, lateral 3 views Date and time of exam: February 19, 2025 0816 hours INDICATIONS: Crush injury to the ankle today, ankle pain. FINDINGS: No ankle fracture or dislocation No foreign body IMPRESSION: No ankle fracture or dislocation
--- NOTE | 2025-02-09 08:05 | XR_ITS ---
Examination: Foot, left, 3 views Technique: AP, oblique, lateral views foot, 3 views Date and time of exam: February 19, 2025 0816 hours INDICATIONS: Crush injury to the foot today, foot pain FINDINGS: No acute fracture. No dislocation No foreign body IMPRESSION: No acute fracture
--- NOTE | 2025-02-09 08:07 | PD.EDANKLE ---
Lower Extremity Injury RME/HPI General Chief Complaint: Ankle/Foot Injury Stated Complaint: Left foot smashed with forklift Time Seen by Provider: 02/09/25 07:45 Arrival date/time: 02/09/25 07:44 RME / HPI RME / HPI Narrative: DR. ZARATE MAIN ED EVALUATION: 24-year-old male with no known medical history or allergies presents to the Emergency Department with complaint of left foot injury after it was smashed by a forklift. Patient states he is unable to feel his big toe. No other associated symptoms reported at this time. Related Data Previous Rx's ?Medication ?Instructions ?Recorded ibuprofen 600 mg tablet 600 mg PO Q6H #30 tabs 02/26/19 ibuprofen 600 mg tablet 600 mg PO Q6H #30 tabs 02/26/19 ibuprofen 800 mg tablet 800 mg PO TID PRN pain #30 tabs 11/20/23 dicyclomine 10 mg capsule 20 mg (2 x 10 mg) PO TID PRN 11/11/24 abdominal pain #30 caps ondansetron 4 mg disintegrating 4 mg PO Q8H PRN nausea and 11/11/24 tablet vomiting #20 tabs cyclobenzaprine 10 mg tablet 10 mg PO TID PRN muscle spasm #30 02/02/25 tabs ibuprofen 800 mg tablet 800 mg PO Q8H PRN pain #30 tabs 02/02/25 Allergies Allergy/AdvReac Type Severity Reaction Status Date / Time No Known Allergies Allergy Verified 02/09/25 07:47 Review of Systems Review of Systems Systems Reviewed: All systems reviewed, normal except as documented Past Medical History Past Medical History NEUROLOGIC: Positive Seizures Social History SMOKING STATUS: Never smoker SUBSTANCE USE: does not use ALCOHOL: Never ED Exam Narrative Physical exam: GENERAL APPEARANCE:? alert and oriented x 4, well-developed, well-nourished, no acute distress HEENT: normocephalic, atraumatic NECK: supple LUNGS: no respiratory distress, normal effort HEART: good peripheral perfusion ABDOMEN: non distended EXTREMITIES:? erythema, mild edema, and tenderness of left great toe; NV is intact; cap refill is less than 2 seconds NEUROLOGIC: awake; alert and oriented x4; cranial nerves II-XII grossly intact PSYCHIATRIC:? appropriate mood and affect SKIN: warm, dry, normal color; no rashes Course Quality Measures none Orders Category Date Time Status Crutches .NOW Care 02/09/25 09:54 Completed IV [Insert IV] STAT Care 02/09/25 07:57 Completed XR ankle comp LT min 3V Stat Exams 02/09/25 08:05 Completed XR foot comp LT min 3V Stat Exams 02/09/25 08:05 Completed HYDROmorphone INJ [Dilaudid Inj] Med 02/09/25 07:56 Discontinued 1 mg IVP X1 ONE HYDROmorphone INJ [Dilaudid Inj] Med 02/09/25 10:02 Discontinued 1 mg IVP X1 ONE Ketorolac Inj [Toradol Inj] Med 02/09/25 08:58 Discontinued 15 mg IVP X1 ONE Ondansetron Inj [Zofran Inj] Med 02/09/25 07:56 Discontinued 4 mg IVP X1 ONE Vital Signs Vital signs: Vital Signs Temperature 97.7 F 02/09/25 07:59 Pulse Rate 63 02/09/25 07:59 Respiratory Rate 13 02/09/25 07:59 Blood Pressure 157/102 H 02/09/25 07:59 Pulse Oximetry (%) 95 02/09/25 07:59 Oxygen Delivery Method Room Air 02/09/25 07:59 Extremity Injury, Lower MDM Narrative MDM Narrative:: I, Charlotte Cortes am scribing for and in the presence of Dr. Zarate. Patient data External records reviewed:: [facility] previous records Clinical information provided by:: patient Social determinants that could affect healthcare access:: none Patient has the following chronic illnesses:: Denies any PMHx, surgeries, daily medications, or known allergies. How is presenting disease/condition affected by chronic disease/condition?: no chronic disease Evaluation data The following diagnostics were reviewed and interpreted by me:: radiology exam(s) Lab and/or radiology exams considered but not ordered:: none Interpretation Summary: Procedure(s): XR foot comp LT min 3V Accession Number(s): [id number] cc: Jimmy Valencia MD; Shyam Andrew MD; Ely Zarate MD~ Examination: Foot, left, 3 views Technique: AP, oblique, lateral views foot, 3 views Date and time of exam: February 19, 2025 0816 hours INDICATIONS: Crush injury to the foot today, foot pain FINDINGS: No acute fracture. No dislocation No foreign body IMPRESSION: No acute fracture Dictated By: Shyam Andrew MD Procedure(s): XR ankle comp LT min 3V Accession Number(s): [id number] cc: Jimmy Valencia MD; Shyam Andrew MD; Ely Zarate MD~ EXAMINATION: Ankle, left 3 views . Technique: Ankle AP, oblique, lateral 3 views Date and time of exam: February 19, 2025 0816 hours INDICATIONS: Crush injury to the ankle today, ankle pain. FINDINGS: No ankle fracture or dislocation No foreign body IMPRESSION: No ankle fracture or dislocation Dictated By: Shyam Andrew MD Medications / Prescriptions Medications or Prescriptions considered but not ordered:: none Medication administrations:: Medication Administration History Discontinued Medications Hydromorphone HCl (Hydromorphone Inj 2 Mg/Ml Vial) 1 mg IVP X1 ONE Stop: 02/09/25 07:57 Last Admin: 02/09/25 08:09 Dose: 1 mg Documented By: ANGELINA Hydromorphone HCl (Hydromorphone Inj 2 Mg/Ml Vial) 1 mg IVP X1 ONE Stop: 02/09/25 10:03 Last Admin: 02/09/25 10:07 Dose: 1 mg Documented By: ANGELINA Ketorolac Tromethamine (Ketorolac Inj 30 Mg/Ml Vial) 15 mg IVP X1 ONE Stop: 02/09/25 08:59 Last Admin: 02/09/25 09:34 Dose: 15 mg Documented By: ANGELINA Ondansetron HCl (Ondansetron Inj 2 Mg/Ml Inj 2 Ml) 4 mg IVP X1 ONE; Protocol Stop: 02/09/25 07:57 Last Admin: 02/09/25 08:08 Dose: 4 mg Documented By: ANGELINA see above Consultations Consultation(s) initiated? (list below): No Diagnosis Extremity Injury, Lower Differential Diagnosis: other (foot fracture, soft tissue crush injury, and peripheral nerve injury) Most likely diagnosis given after review of the tests above:: Crushing injury of left great toe, initial encounter Admission Indicated Admission indicated?: not indicated Admission Request Was there a request for admission?: No Disposition Plan Disposition Plan: Discharge Discharge Attestation Discharge Attestation: The patient and all family members were given an opportunity to ask questions and understood the discharge instructions. Discharge instructions specifically effects, indications for sooner follow up or return to the emergency department, and the expected course of current diagnosis. Patient condition: Stable Discharge Plan Plan Patient Disposition: HOME (Self Care) Patient condition on transfer: Stable Prescriptions/Referrals Prescriptions/Med Rec: No Action ibuprofen 600 mg tablet 600 mg PO Q6H Qty: 30 0RF ibuprofen 600 mg tablet 600 mg PO Q6H Qty: 30 0RF ibuprofen 800 mg tablet 800 mg PO TID PRN (Reason: pain) Qty: 30 0RF dicyclomine 10 mg capsule 20 mg PO TID PRN (Reason: abdominal pain) Qty: 30 0RF ondansetron 4 mg tablet,disintegrating 4 mg PO Q8H PRN (Reason: nausea and vomiting) Qty: 20 0RF ibuprofen 800 mg tablet 800 mg PO Q8H PRN (Reason: pain) Qty: 30 0RF cyclobenzaprine 10 mg tablet 10 mg PO TID PRN (Reason: muscle spasm) Qty: 30 0RF Referrals: Jimmy Valencia MD [Primary Care Provider] - In 1 week Problem List Clinical Impression: Crushing injury of left great toe, initial encounter Patient/Caregiver Discharge Instructions Education Materials: ED Crush Injury, Foot/Toe Print Language: Mosotho Stand Alone Forms: Gerri Award Info., Patient Portal Info Letter
[2025-02-09] MEDS: ONDANSETRON INJ 2 MG/ML INJ 2 ML 4 MG IVP (08:08)
[2025-02-09] MEDS: HYDROmorphone INJ 2 MG/ML VIAL 1 MG IVP ×2 (08:09→10:07)
[2025-02-09 08:13] VITALS: BMI 30.4
[2025-02-09] MEDS: KETOROLAC INJ 30 MG/ML VIAL 15 MG IVP (09:34)
[2025-02-09 10:09] VITALS: BP 157/102; PULSE 59; RESP 16; TEMP 36.7; O2SAT 98
--- NOTE | 2025-03-20 13:39 | PC.SS ---
[employer] received call stating that [facility] is not contracted with patient's insurance for home health services.
== END 2025-02-09 10:39 | disposition home or self-care (01) ==
PROVIDERS: Emergency Provider Emergency Medicine; PCP Family Medicine
DX: S97.112A Crushing injury of left great toe, initial encounter (principal); S99.912A Unspecified injury of left ankle, initial encounter; W23.0XXA Caught, crushed, jammed, or pinched between moving objects, initial encounter; Y99.0 Civilian activity done for income or pay
CPT/HCPCS: 73610; 73630; 96374; 96375; 96376; 99283; J1171; J1885; J2405

== ENCOUNTER → 2025-03-12 | Outpatient (BNVA) | payer MEDICAID, SELFPAY | END | disposition home or self-care (01) | PROVIDERS: PCP Nurse Practitioner Primary Care; Referring Provider Nurse Practitioner Primary Care; Visit Provider Nurse Practitioner Primary Care | DX: Z00.00 Encounter for general adult medical examination without abnormal findings (principal); K29.20 Alcoholic gastritis without bleeding; F10.10 Alcohol abuse, uncomplicated; R56.9 Unspecified convulsions | CPT/HCPCS: 99203; 99213 ==

== ENCOUNTER → 2025-03-13 | Outpatient (BNVA) | payer MEDICAID, SELFPAY | END | disposition home or self-care (01) | PROVIDERS: PCP Nurse Practitioner Primary Care; Referring Provider Nurse Practitioner Primary Care; Visit Provider Nurse Practitioner Primary Care | DX: Z00.01 Encounter for general adult medical examination with abnormal findings (principal); Z28.21 Immunization not carried out because of patient refusal; Z13.228 Encounter for screening for other metabolic disorders; Z11.3 Encounter for screening for infections with a predominantly sexual mode of transmission; Z13.29 Encounter for screening for other suspected endocrine disorder; K29.20 Alcoholic gastritis without bleeding; F10.10 Alcohol abuse, uncomplicated; F13.10 Sedative, hypnotic or anxiolytic abuse, uncomplicated; R10.9 Unspecified abdominal pain | CPT/HCPCS: 99173; 99395; G0439 ==

== ENCOUNTER → 2025-04-03 | Outpatient (BNVA) | payer MEDICAID, SELFPAY | END | disposition home or self-care (01) | PROVIDERS: PCP Nurse Practitioner Primary Care; Referring Provider Nurse Practitioner Primary Care; Visit Provider Nurse Practitioner Primary Care | DX: Z71.2 Person consulting for explanation of examination or test findings (principal); K29.20 Alcoholic gastritis without bleeding; F10.10 Alcohol abuse, uncomplicated; R10.9 Unspecified abdominal pain; E55.9 Vitamin D deficiency, unspecified | CPT/HCPCS: 99213 ==

== ENCOUNTER 2025-05-29 10:13 | Emergency (ER) | payer OTHER, SELFPAY ==
[2025-05-29 10:33] VITALS: BP 143/85; PULSE 84; RESP 18; TEMP 36.9; O2SAT 97; BMI 29.5
--- NOTE | 2025-05-29 10:35 | XR_ITS ---
Examination: Shoulder, right, 3 views Technique: Shoulder AP internal rotation, AP external rotation, Y view shoulder, 3 views Exam date and time : May 29, 2025, 11:13 a.m. INDICATIONS: Patient fell today with injury of the shoulder, shoulder pain. FINDINGS: No shoulder fracture or dislocation No AC joint separation IMPRESSION: No shoulder fracture or dislocation
--- NOTE | 2025-05-29 10:35 | PD.EDUPEX ---
Upper Extremity Injury RME/HPI General Chief Complaint: Extremity Injury, Upper Stated Complaint: R SHOULDER PAIN SP FALL Time Seen by Provider: 05/29/25 10:23 Source: patient Arrival date/time: 05/29/25 10:13 24-year-old male with no known medical history presents to the emergency room with a chief complaint of right shoulder pain after a ground-level fall that occurred yesterday afternoon Mode of arrival: ambulatory Limitations: no limitations Related Data Previous Rx's ?Medication ?Instructions ?Recorded cholecalciferol (vitamin D3) 1,250 1,250 mcg PO QWEEK 12 weeks #12 04/03/25 mcg (50,000 unit) capsule caps Allergies Allergy/AdvReac Type Severity Reaction Status Date / Time No Known Allergies Allergy Verified 04/03/25 11:31 Review of Systems Review of Systems Systems Reviewed: All systems reviewed, normal except as documented Constitutional Constitutional: Reports system reviewed and no additional complaints, except as documented, Denies fatigue, Denies fever(s), Denies headache(s) and Denies weakness Eyes Eyes: Reports system reviewed and no additional complaints, except as documented, Denies blurry vision and Denies change in vision ENT Ears, Nose, Mouth, and Throat: Reports system reviewed and no additional complaints, except as documented, Denies otalgia, Denies headache(s), Denies nasal congestion, Denies throat swelling and Denies vertigo Cardiovascular Cardiovascular: Reports system reviewed and no additional complaints, except as documented, Denies chest pain, Denies dyspnea and Denies dyspnea on exertion Respiratory Respiratory: Reports system reviewed and no additional complaints, except as documented, Denies chest congestion, Denies cough, Denies dyspnea, Denies dyspnea on exertion and Denies wheezing Gastrointestinal Gastrointestinal: Reports system reviewed and no additional complaints, except as documented, Denies abdominal pain, Denies cramping, Denies nausea and Denies vomiting Genitourinary Genitourinary: Reports system reviewed and no additional complaints, except as documented, Denies dysuria and Denies hematuria Musculoskeletal Musculoskeletal: Reports system reviewed and no additional complaints, except as documented, Reports arthralgias, Denies back pain, Reports joint swelling and Reports limited range of motion Integumentary/Breasts Skin/Breast: Reports system reviewed and no additional complaints, except as documented and Denies wounds Neurologic Neurologic: Reports system reviewed and no additional complaints, except as documented, Denies confusion, Denies headache(s), Denies lack of coordination, Denies vertigo and Denies weakness Psychiatric Psychiatric: Reports system reviewed and no additional complaints, except as documented, Denies anxiety, Denies confusion, Denies depression, Denies paranoia, Denies suicidal ideation and Denies tactile hallucinations Endocrine Endocrine: Reports system reviewed and no additional complaints, except as documented and Denies fatigue Hematologic/Lymphatic Hematologic/Lymphatic: Reports system reviewed and no additional complaints, except as documented and Denies lymphadenopathy Allergic/Immunologic Allergic/Immunologic: Reports system reviewed and no additional complaints, except as documented, Denies throat swelling, Denies urticaria and Denies wheezing Past Medical History Past Medical History NEUROLOGIC: Positive Seizures CARDIAC: Negative Congestive Heart Failure RESPIRATORY: Negative Chronic Obstructive Pulmonary Disease (COPD) GENITOURINARY: Negative Renal Disease ENDOCRINE: Negative Diabetes Mellitus Type 1 or Diabetes Mellitus Type 2 Social History SMOKING STATUS: Never smoker SUBSTANCE USE: does not use ED Exam General Limitations: Present no limitations General appearance: Present alert and in no apparent distress Head Head exam: Present atraumatic Eye Eye exam: Present normal appearance, PERRL and EOMI ENT ENT exam: Present normal exam, normal oropharynx and mucous membranes moist Neck Neck exam: Present normal inspection, full ROM and trachea midline Chest Chest inspection: Present normal inspection and symmetric chest wall rise Respiratory Respiratory exam: Present normal lung sounds bilaterally Cardiovascular Cardiovascular exam: Present regular rate, normal rhythm and normal heart sounds Abdominal Exam Abdominal exam: Present soft and normal bowel sounds Extremities Exam Extremities exam: Present normal inspection and full ROM Expanded Upper Extremity Exam Shoulder exam: Present tenderness, swelling and tenderness over AC joint; Absent full ROM Back Exam Back exam: Present normal inspection and full ROM Neurological Exam Neurological exam: Present alert, oriented X3 and CN II-XII intact Psychiatric Psychiatric exam: Present normal affect and normal mood Skin Skin exam: Present warm, dry, intact and normal color Course Quality Measures none Orders Category Date Time Status sling [Splint / Immobilizer] STAT Care 05/29/25 11:42 Completed XR shoulder RT min 2V Stat Exams 05/29/25 10:35 Completed Vital Signs Vital signs: Vital Signs Temperature 98.4 F 05/29/25 10:33 Pulse Rate 84 05/29/25 10:33 Respiratory Rate 18 05/29/25 10:33 Blood Pressure 143/85 H 05/29/25 10:33 Pulse Oximetry (%) 97 05/29/25 10:33 Oxygen Delivery Method Room Air 05/29/25 10:33 Extremity Injury MDM Narrative MDM Narrative:: 24-year-old male with no known medical history presents to the emergency room with a chief complaint of right shoulder pain after a ground-level fall that occurred yesterday afternoon Patient is hemodynamically stable and in no apparent distress Physical examination shows tenderness to the patient's right shoulder with palpation. The patient has limited range of motion X-ray of the shoulder shows no acute fracture dislocation Patient was educated to follow-up with primary care provider for further management Patient was discharged and educated to follow-up with primary care provider in the next 24 to 48 hours and return to the emergency room for any evidence of worsening signs or symptoms Patient data External records reviewed:: [facility] previous records Clinical information provided by:: patient Social determinants that could affect healthcare access:: none Patient has the following chronic illnesses:: No chronic illness How is presenting disease/condition affected by chronic disease/condition?: no chronic disease Evaluation data The following diagnostics were reviewed and interpreted by me:: lab results and radiology exam(s) Lab and/or radiology exams considered but not ordered:: Labs and radiology exams considered and ordered Interpretation Summary: X-ray shoulder-no acute fracture or dislocation Medications / Prescriptions Medications or Prescriptions considered but not ordered:: No medication given Medication administrations:: No medication given Consultations Consultation(s) initiated? (list below): No Diagnosis Upper Extremity Injury Differential Diagnosis: dislocation of shoulder and other (Shoulder fracture/shoulder sprain) Most likely diagnosis given after review of the tests above:: Shoulder sprain Admission Indicated Admission indicated?: not indicated Admission Request Was there a request for admission?: No Disposition Plan Disposition Plan: Discharge Discharge Attestation Discharge Attestation: The patient and all family members were given an opportunity to ask questions and understood the discharge instructions. Discharge instructions specifically effects, indications for sooner follow up or return to the emergency department, and the expected course of current diagnosis. Patient condition: Stable Discharge Plan Plan Patient Disposition: HOME (Self Care) Discharge Disposition comment: Stable Prescriptions/Referrals Prescriptions/Med Rec: No Action cholecalciferol (vitamin D3) 1,250 mcg (50,000 unit) capsule 1,250 mcg PO QWEEK 84 Days Qty: 12 0RF Referrals: [facility] [employer],Hellen N, [employer] [Primary Care Provider, Family Practice] - In 1 week Problem List Clinical Impression: Shoulder sprain Patient/Caregiver Discharge Instructions Education Materials: ED Shoulder Sprain Additional Instructions: Please follow-up with your primary care provider in the next 24 to 48 hours X-rays of your shoulder were negative for any acute findings For any evidence of worsening signs or symptoms return to the emergency room immediately Print Language: Austrian Stand Alone Forms: Gerri Award Info., Work/School Release, Patient Portal Info Letter 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 Barney
== END 2025-05-29 12:04 | disposition home or self-care (01) ==
PROVIDERS: Emergency Provider Emergency Medicine; PCP Nurse Practitioner Family
DX: S43.401A Unspecified sprain of right shoulder joint, initial encounter (principal); W01.198A Fall on same level from slipping, tripping and stumbling with subsequent striking against other object, initial encounter; Y93.01 Activity, walking, marching and hiking; Y92.89 Other specified places as the place of occurrence of the external cause; Y99.0 Civilian activity done for income or pay
CPT/HCPCS: 73030; 99282